=== PATIENT | female | born 1975 | race Caucasian/White ===

== ENCOUNTER 2018-03-26 10:42 | Inpatient (IN) | payer OTHER, MEDICAID, SELFPAY ==
[2018-03-26] VITALS (9 sets, daily range): BP systolic 116–145; BP diastolic 68–89; PULSE 86–131; RESP 18–107; TEMP 36.5–37.3; O2SAT 94–96; BMI 31.8
--- NOTE | 2018-03-26 12:57 | P.HP_ITS ---
History of Present Illness Date Patient Seen: 03/26/18 Time Patient Seen: 12:43 Chief complaint: COPD Narrative: Patient is a 42 y/o female with a known history of COPD and Asthma who awoke today very short of breath. She called 911 and was taken to the [facility] ED for evaluation. Patient has a non productive cough. She denies fever, chills, or runny nose. She denies chest pain. She has had wheezing and shortness of breath. Patient states she knows she should quit smoking but continues to smoke about one pack every 3-4 days. She wants a nicotine patch. Patient received several nebs at [facility]. She was placed on bipap briefly but she did not tolerate it and this was discontinued. She is currently breathing easier and is now on 2 liters of oxygen. She uses 2 liters at home. Patient was briefly placed on a non rebreather mask at [facility] for her hypoxia. Patient had a chest xray which was negative for Pneumonia. As there were no beds at [facility], patient was transferred to [facility] for admission. She reports she has never been intubated Patient History Medical History Anxiety (Acute) Asthma (Acute) COPD (chronic obstructive pulmonary disease) (Acute) Small bowel obstruction due to adhesions (Acute) Surgical History H/O hemicolectomy (Acute) Family & Social History Social History: Smokes 1 pack every 3-4 days No ETOH No Drugs Tobacco & Substance use: 1 pack every 3-4 days Meds Home Medications Medication Instructions Recorded Confirmed Type albuterol sulfate [Ventolin HFA] 03/26/18 History fluticasone [Flonase Allergy 03/26/18 History Relief] fluticasone-salmeterol [Advair 03/26/18 History Diskus] loratadine 03/26/18 History montelukast 03/26/18 History prednisone 03/26/18 History tiotropium bromide [Spiriva with 03/26/18 History HandiHaler] Allergies Allergy/AdvReac Type Severity Reaction Status Date / Time No Known Drug Allergies Allergy Unverified 03/26/18 12:54 Review of Systems Review of Systems All systems reviewed & are unremarkable except as noted in HPI and below Exam Narrative Exam Narrative: HEENT: NC/AT, EOMI, Oropharynx clear, neck supple Lungs: decreased breath sounds with end expiratory wheezing CV: Tachycardic nl S1S2 ABd: soft/non tender/non distended, no hepatosplenomegaly EXT: No edema Neuro: non focal Skin: no lesions or rashes Psychiatric: calm with normal mentation Objective Labs Labs: Labs reviewed Assessment & Plan (1) Acute respiratory failure: Problem details: Continue oxygen, nebulizers, steroids, and start antibiotics Current visit: Yes Status: Acute (2) Asthma: Problem details: Continue steroids and nebulizers Current visit: Yes Status: Acute (3) COPD (chronic obstructive pulmonary disease): Problem details: same as above Nicotine patch DVT prophylaxis Current visit: Yes Status: Acute
[2018-03-26] MEDS: DEXTROSE 5%-0.9% NS 1,000 ML 100 ML IV ×2 (13:40→23:53)
[2018-03-26] MEDS: ENOXAPARIN 40 MG/0.4 ML SYRINGE SUBCUT (13:40)
[2018-03-26] MEDS: NICOTINE 21 MG PATCH TOP (13:41)
[2018-03-26] MEDS: levoFLOXacin 250 MG TABLET 750 MG PO (13:41)
[2018-03-26] MEDS: ALBUTEROL/IPRATROPIUM 3 ML AMPUL INH ×2 (14:53→19:35)
--- NOTE | 2018-03-26 15:46 | PC.NURSE ---
Admission Note: Pt arrives via EMS from [facility] ER. Pt arrives on 3 L simple face mask. SPO2 95%. Pt with wheezing in all lung jasmine, RR 20. Pt reports that her breathing is much improved from earlier today when she was at [facility] ER. Pt with HR 130s. Pt given 1st dose of levofloxacin PO. Started on IVF. Pt now with HR 120. Weaned to 1 L NC with SPO2 95%. Call light in reach, discussed that pt should call for help with transferring. Report given to oncoming RN.
[2018-03-26] MEDS: FLUTICASONE 220MCG HFA 120 PUFF INH (19:35)
[2018-03-27] VITALS (14 sets, daily range): BP systolic 123–144; BP diastolic 81–90; PULSE 84–97; RESP 14–20; TEMP 36.3–37.1; O2SAT 2–99
[2018-03-27] MEDS: FLUTICASONE/SALMETEROL 500/50 14 PUFF DISKUS INH ×4 (01:20→10:00)
[2018-03-27] MEDS: ALBUTEROL/IPRATROPIUM 3 ML AMPUL INH ×2 (01:20→06:16)
[2018-03-27 05:51] LABS: BUN Creatinine Ratio 16.7 (6-22); Blood Urea Nitrogen 10 mg/dL (7-17); Calcium 8.5 mg/dL (8.4-10.2); Carbon Dioxide 28 mmol/L (22-32); Chloride 104 mmol/L (98-107); Estimated Glomerular Filt Rate > 60.0 mL/min (>60); Glucose 117 mg/dL (70-100); HEMOLYSIS 17 (0-50); Potassium 3.7 mmol/L (3.4-5.1); Sodium 138 mmol/L (137-145)
[2018-03-27 05:56] LABS: Add Manual Diff / Slide Review NO; Basophils Percent Auto 0.3 % (0-2); Eosinophils Percent Auto 0.6 % (2-4); Hematocrit 36.4 % (36-46); Hemoglobin 12.4 g/dL (12.0-16.0); Lymphocytes Percent Auto 20.2 % (25-40); Mean Corpuscular Hemoglobin 35.5 PG (26-34); Mean Corpuscular Volume 104.3 fL (80-100); Monocytes Percent Auto 7.6 % (3-14); Neutrophils Absolute Auto 7100 /uL (3000-5900); Neutrophils Percent Auto 71.3 % (50-75); Platelet Count 254 X10^3/uL (150-400); Red Blood Cell Count 3.49 X10^6/uL (4.0-5.2); Red Cell Distribution Width 14.4 % (11.6-14.8)
[2018-03-27] MEDS: FLUTICASONE 220MCG HFA 120 PUFF INH ×2 (06:15→18:30)
[2018-03-27 06:33] LABS: Macrocytosis 3+
[2018-03-27] MEDS: ENOXAPARIN 40 MG/0.4 ML SYRINGE SUBCUT (08:13)
[2018-03-27] MEDS: NICOTINE 21 MG PATCH TOP (08:14)
[2018-03-27] MEDS: predniSONE 20 MG TABLET 40 MG PO (08:14)
[2018-03-27] MEDS: TIOTROPIUM BROMIDE 18 MCG INHALER INH (09:57)
[2018-03-27] MEDS: DEXTROSE 5%-0.9% NS 1,000 ML 100 ML IV (10:59)
[2018-03-27] MEDS: levoFLOXacin 250 MG TABLET 750 MG PO (11:59)
[2018-03-27] MEDS: ALBUTEROL 2.5 MG/3 ML NEB (ADULT) INH ×3 (14:26→23:01)
--- NOTE | 2018-03-27 14:36 | CM.DANOTE ---
Discharge Planning/Care Management DCP: assessment: Case received, EMR reviewed and met with pt 0800 . Introduced self and role. Pt was found in bed, o2 in place. States has home o2 but uses it only at night. Pt is a 42 year old female who admitted yesterday to care of hospitalist team. PCP Christophe RICE/ [facility]. Payer: [employer]/Medicaid. Pt plans to go home when stable for same. Dr. Ponce did say in morning rounds that pt would likely d/c home today. RT gave input in pt's case and hospitalist PA did later confirm that the d/c was cancelled and pt would continue to be treated in hospital setting. DCP team will follow prn for any d/c needs that may arise. CM Discharge Assessment Start: 03/27/18 14:33 Freq: Status: Active Protocol: Document 03/27/18 14:33 ITV (Rec: 03/27/18 14:35 ITV [email or web address]) Discharge Planning Assessment History Provided By Patient Medical Record Prior Living Arrangements House Household Members significant other Independent with ADL's Yes Is patient alert and oriented? 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 She does continue to smoke [employer] cigarettes. Transportation Arrangement her partner Musa Rivera Review Status In Process Next Review Type Continued Stay Review Document 03/27/18 14:35 ITV (Rec: 03/27/18 14:36 ITV [email or web address]) Discharge Planning Assessment History Provided By Patient Medical Record Prior Living Arrangements House Household Members significant other Independent with ADL's Yes Is patient alert and oriented? 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 She does continue to smoke [employer] cigarettes. Transportation Arrangement her partner Musa Rivera Review Status In Process Next Review Type Continued Stay Review
--- NOTE | 2018-03-27 16:23 | PM.PN.1 ---
Subjective Date Patient Seen: 03/27/18 Interval history: Still short of breath. Markedly hypoxic with activity. Saturation dropped to 86% on 2 liters of oxygen. Patient has a very low peak flow at 110 Exam Vital Signs (past 8 hours): - 03/27/18 09:29 03/27/18 11:00 03/27/18 14:30 Pulse Rate 86 97 H Respiratory Rate 16 18 Blood Pressure 133/81 H Pulse Oximetry 2 L 93 96 Fraction of Inspired Oxygen 1 Oxygen Delivery Method Nasal Cannula Oxygen Flow Rate 1 Narrative Exam Narrative: Lungs: decreased breath sounds with diffuse wheezing CV: RRR nl Sl S2 ABd: Soft/ non tender/non distended Ext: no edema Skin: no rashes Objective Labs Result Diagrams: 03/27/18 05:32 03/27/18 05:32 Labs: Laboratory Results - last 24 hr 03/27/18 03/27/18 05:32 05:32 WBC 10.0 RBC 3.49 L Hgb 12.4 Hct 36.4 MCV 104.3 H MCH 35.5 H MCHC 34.0 RDW 14.4 Plt Count 254 Neut % (Auto) 71.3 Lymph % (Auto) 20.2 L [place] % (Auto) 7.6 Eos % (Auto) 0.6 L Baso % (Auto) 0.3 Neut # (Auto) 7100 H RBC Morphology Not Reportable Macrocytosis 3+ H Sodium 138 Potassium 3.7 Chloride 104 Carbon Dioxide 28 BUN 10 Creatinine 0.60 Estimated GFR > 60.0 BUN/Creatinine Ratio 16.7 Glucose 117 H Calcium 8.5 Assessment & Plan (1) Acute respiratory failure: Problem details: Continue oxygen, nebulizers, steroids, and start antibiotics Current visit: Yes Status: Acute (2) Asthma: Problem details: Continue steroids and nebulizers Current visit: Yes Status: Acute (3) COPD (chronic obstructive pulmonary disease): Problem details: same as above Nicotine patch DVT prophylaxis Current visit: Yes Status: Acute
[2018-03-27] MEDS: ACETAMINOPHEN 325 MG TABLET 650 MG PO (18:33)
--- NOTE | 2018-03-27 19:10 | PC.NURSE ---
Pt awake and alert sitting up in bed. 02 1.5L per nc sats 94%. Heplocked as per MD order. Tele in place. Pt admits to pain in lungs. Pt has occasional dry cough. Faint scattered expiratory wheezes and diminished breath sounds throughout. R.T. treatment in progress. Administered tylenol for discomfort and will monitor. Pt has extension oxygen tubing in place to allow for movement in room.
[2018-03-27] MEDS: SODIUM CHLORIDE 0.9% FLUSH 10 ML IV (19:23)
--- NOTE | 2018-03-27 21:49 | PC.NURSE ---
Pt c/o sore throat and feels glands are swollen BL neck. No difficulty with managing airway. Pt requests this newswriter look in throat. Back of throat is reddened and pt's tongue has large white plaque on right aspect. Discussed with Dr. Cheney via telephone and nystatin swish and swallow ordered.
[2018-03-27] MEDS: NYSTATIN 100,000 UNIT/ML ORAL SUSP UDC 500000 UNIT PO (22:16)
[2018-03-28] VITALS (9 sets, daily range): BP systolic 129–151; BP diastolic 79–89; PULSE 69–114; RESP 14–16; TEMP 36.6–36.9; O2SAT 92–97
[2018-03-28] MEDS: HYDROCODONE/ACET 5/325 TABLET 1 TAB PO (02:51)
[2018-03-28] MEDS: ALBUTEROL 2.5 MG/3 ML NEB (ADULT) INH ×3 (06:20→11:35)
[2018-03-28] MEDS: FLUTICASONE 220MCG HFA 120 PUFF INH (06:22)
[2018-03-28] MEDS: TIOTROPIUM BROMIDE 18 MCG INHALER INH (06:23)
[2018-03-28] MEDS: levoFLOXacin 250 MG TABLET 750 MG PO (08:49)
[2018-03-28] MEDS: NICOTINE 21 MG PATCH TOP (08:49)
[2018-03-28] MEDS: NYSTATIN 100,000 UNIT/ML ORAL SUSP UDC 500000 UNIT PO (08:50)
[2018-03-28] MEDS: ENOXAPARIN 40 MG/0.4 ML SYRINGE SUBCUT (08:50)
[2018-03-28] MEDS: SODIUM CHLORIDE 0.9% FLUSH 10 ML IV (08:52)
[2018-03-28] MEDS: predniSONE 20 MG TABLET 40 MG PO (08:52)
[2018-03-28] MEDS: DOCUSATE 100 MG CAPSULE PO (08:54)
--- NOTE | 2018-03-28 10:08 | PM.DS.1 ---
History of Present Illness Chief complaint: COPD Narrative: Patient is a 42 y/o female with a known history of COPD and Asthma who awoke today very short of breath. She called 911 and was taken to the [facility] ED for evaluation. Patient has a non productive cough. She denies fever, chills, or runny nose. She denies chest pain. She has had wheezing and shortness of breath. Patient states she knows she should quit smoking but continues to smoke about one pack every 3-4 days. She wants a nicotine patch. Patient received several nebs at [facility]. She was placed on bipap briefly but she did not tolerate it and this was discontinued. She is currently breathing easier and is now on 2 liters of oxygen. She uses 2 liters at home. Patient was briefly placed on a non rebreather mask at [facility] for her hypoxia. Patient had a chest xray which was negative for Pneumonia. As there were no beds at [facility], patient was transferred to [facility] for admission. She reports she has never been intubated Discharge Providers Date of admission: 03/26/18 10:42 Primary care physician: Christophe Dinh Discharge provider: Andree Ponce MD Summary Discharge Diagnosis: Acute REspiratory Failure COPD Asthma Bronchitis Hospital Course: Patient was admitted to the hospital for hypoxemic respiratory failure. She required steroids, oxygen, nebulizers, and antibiotics. She made slow but steady improvement and was deemed appropriate for discharge home. Status at Discharge Functional status at discharge: independent ambulation Overall status at discharge: patient is back to baseline Time Spent with Patient Less than 30 minutes Time spent discussing smoking cessation with patient: 3 to 10 minutes Exam Vital Signs (past 8 hours): - 03/28/18 03:13 03/28/18 06:32 03/28/18 08:00 Temperature 98.0 F 97.9 F Pulse Rate 69 88 82 Respiratory Rate 16 14 14 Blood Pressure 133/79 H 129/84 H Pulse Oximetry 97 95 93 03/28/18 09:55 Temperature Pulse Rate Respiratory Rate Blood Pressure Pulse Oximetry 96 Fraction of Inspired Oxygen 1 Oxygen Delivery Method Room Air Oxygen Flow Rate 0 Narrative Exam Narrative: Lungs: Decreased breath sounds with end expiratory wheezing CV: RRR nl Sl S2 Abd; soft/non tender/ non distended Ext: no edema Skin: no lesions Objective Labs Result Diagrams: 03/27/18 05:32 03/27/18 05:32 Discharge Plan Discharge Plan Patient Disposition: Home, Self-Care Discharge comment: Please review discharge medications and discharge plan with patient Discharge Med Rec/Prescriptions Prescriptions: New prednisone 20 mg Tablet 40 mg PO DAILY 5 Days Qty: 10 RF: 0 levofloxacin 750 mg tablet 750 mg PO DAILY Qty: 5 RF: 0 Continue fluticasone-salmeterol 500-50 mcg/dose blister with device 500 mcg Inhalation BID RF: 0 tiotropium bromide 18 mcg capsule, w/inhalation device 18 mcg Inhalation QAM RF: 0 loratadine 10 mg tablet 1 tab PO DAILY RF: 0 montelukast 10 mg tablet 1 tab PO DAILY RF: 0 albuterol sulfate 90 mcg/actuation HFA aerosol inhaler 90 mcg Inhalation Q6HR PRN (Reason: Shortness Of Breath Or Wheezing) RF: 0 Discontinued prednisone 20 mg tablet RF: 0 Follow up/Referrals: Christophe Dinh [Primary Care Provider] - (please call dr.l andre and schedule a follow up hospital stay [phone]) Provider Discharge Instructions Diet: Low-sodium Activity: as tolerated Oxygen: 2 liters as previously Visit Report/Discharge Packet Instructions: DI for Asthma -- Adult, DI for Chronic Obstructive Pulmonary Disease, DI for Acute Bronchitis Visit Report Forms: Stroke Signs & Symptoms Discharge Data Primary Care Provider: Christophe Dinh Attending Provider: Andree Ponce Admasher Date/Time: 03/26/18 10:42
--- NOTE | 2018-03-28 12:41 | CM.DPC ---
DCP Cont: Patient has received discharge orders today to go home. Has been here for respiratory failure, has chronic COPD. Is at her baseline at this time, and is being discharged home. P: Discharge home today. Lupe Gottlieb RN/[employer]
--- NOTE | 2018-03-28 13:46 | PC.NURSE ---
Pt instructed to use home O2 when active at home, otherwise on room air. RT cleared for discharge. Given scripts and dc paperwork. Taken by wheelchair to ER entrance with family members. IV removed by SCOTT Addison.
== END 2018-03-28 13:48 | disposition home or self-care (01) | DRG 133 ==
PROVIDERS: Admitting Provider Internal Medicine; PCP Family Medicine Sports Medicine; Visit Provider Internal Medicine
DX: J96.21 Acute and chronic respiratory failure with hypoxia (principal); F17.210 Nicotine dependence, cigarettes, uncomplicated; F41.9 Anxiety disorder, unspecified; Z99.81 Dependence on supplemental oxygen; J44.1 Chronic obstructive pulmonary disease with (acute) exacerbation; J45.901 Unspecified asthma with (acute) exacerbation; Z72.0 Tobacco use
CPT/HCPCS: 36415; 36592; 80048; 82962; 85025; 94150; 94640; 94760; 99406; J1650; J7613